=== PATIENT | female | born 1995 | race African-American/Black ===

== ENCOUNTER 2017-07-06 10:58 | Emergency (ER) | payer BC ==
[~2017-07-06] VITALS: Ht 152.4 cm; Wt 81.5 kg
[2017-07-06 10:59] VITALS: BP 153/68; PULSE 82; RESP 18; TEMP 98.5; O2SAT 96
[2017-07-06] MEDS ORDERED: SODIUM CHLOR 0.9% 1000 ML INJ 1,000 ML IV SCH (11:18)
[2017-07-06] MEDS ORDERED: LISI10TA3 PO (11:18)
[2017-07-06] MEDS ORDERED: HYDR200T3 PO (11:18)
--- NOTE | 2017-07-06 11:24 | PD ---
HPI Chief Complaint: Flank/Kidney Pain Time Seen by Provider: 11:06 Travel History International Travel<30 days: No Contact w/Intl Traveler<30days: No Traveled to known affect area: No History of Present Illness HPI The patient is a 22-year-old [place] female who presents emergency department for 3 to four-day history of nausea, vomiting, and diarrhea. The patient then developed lower abdominal pain that radiates to back this morning. She denies any dysuria, however, does note dark colored urine. Patient's last menstrual cycle was June 17, had a negative test at her physician's office yesterday. The patient denies any vaginal discharge or bleeding. 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 The patient does complain of elbow pain and knee pain, denies any diffuse myalgias. She denies any congestion, sore throat, cough, chest pain, or shortness of breath. Symptoms are moderate. There are no alleviating or exacerbating factors. She denies any sick contacts at home. She denies any recent international travel. [facility] Past Medical History Narrative Medical Lupus, lupus nephritis Medical other: Yes (lupus) ?: Not LMP: 06/17/17 Past Surgical History Narrative Surgical Kidney biopsy Other Surgery: Yes (kidney biopsies) Social History Alcohol Use: No Tobacco Use: No Substance Use: Yes (marijuana) Allergies-Medications (Allergen,Severity, Reaction): Coded Allergies: Penicillins (Verified Allergy, Severe, hives, 07/06/17) Reported Meds & Prescriptions Reported Meds & Active Scripts Active Reported Lisinopril 10 Mg Tab 10 Mg PO DAILY Hydroxychloroquine (Hydroxychloroquine Sulfate) 200 Mg Tab 200 Mg PO BID Takw with food Review of Systems Except as stated in HPI: all other systems reviewed are Neg General / Constitutional: No: Fever, Chills HENT: No: Sore Throat, Congestion Cardiovascular: No: Chest Pain or Discomfort Respiratory: No: Cough, Shortness of Breath Gastrointestinal: Positive: Nausea, Vomiting, Diarrhea, Abdominal Pain Genitourinary: Positive: Other (dark-colored urine), No: Dysuria, Discharge, Vaginal Bleeding Musculoskeletal: Positive: Arthralgias, No: Myalgias Physical Exam Narrative GENERAL: Awake, alert, very pleasant 22-year-old female who appears her stated age and is in no acute respiratory distress. SKIN: Focused skin assessment warm/dry. HEAD: Atraumatic. Normocephalic. EYES: Pupils equal and round. No scleral icterus. No injection or drainage. ENT: No nasal bleeding or discharge. Mucous membranes pink and moist. NECK: Trachea midline. No JVD. CARDIOVASCULAR: Regular rate and rhythm. No murmur appreciated. RESPIRATORY: No accessory muscle use. Clear to auscultation. Breath sounds equal bilaterally. GASTROINTESTINAL: Abdomen soft, mild suprapubic tenderness. Back: No CVA tenderness. MUSCULOSKELETAL: No obvious deformities. No clubbing. No cyanosis. No edema. No obvious erythema or edema of the knees or elbows. NEUROLOGICAL: Awake and alert. No obvious cranial nerve deficits. Motor grossly within normal limits. Normal speech. Nonfocal. PSYCHIATRIC: Appropriate mood and affect; insight and judgment normal. Data Data Last Documented VS Vital Signs Date Time Temp Pulse Resp B/P (MAP) Pulse Ox O2 Delivery O2 Flow Rate FiO2 07/06/17 11:32 100 Room Air 07/06/17 10:59 98.5 82 18 Orders Orders Complete Blood Count With Diff (07/06/17 11:18) Comprehensive Metabolic Panel (07/06/17 11:18) Lipase (07/06/17 11:18) Urinalysis - C+S If Indicated (07/06/17 11:18) Iv Access Insert/Monitor (07/06/17 11:18) Ecg Monitoring (07/06/17 11:18) Oximetry (07/06/17 11:18) Morphine Inj (Morphine Inj) (07/06/17 11:30) Ondansetron Inj (Zofran Inj) (07/06/17 11:30) Sodium Chlor 0.9% 1000 Ml Inj (Ns 1000 M (07/06/17 11:18) Sodium Chloride 0.9% Flush (Ns Flush) (07/06/17 11:30) Famotidine Inj (Pepcid Inj) (07/06/17 11:30) Ed Urine Pregnancytest Poc (07/06/17 11:18) Influenzae A/B Antigen (07/06/17 11:25) Urine Culture (07/06/17 11:27) Sulfamet-Trimeth Ds 800-160 Mg (Bactrim (07/06/17 12:15) Labs Laboratory Tests Test 07/06/17 11:27 White Blood Count 7.7 TH/MM3 Red Blood Count 4.78 MIL/MM3 Hemoglobin 11.5 GM/DL Hematocrit 35.3 % Mean Corpuscular Volume 73.9 FL Mean Corpuscular Hemoglobin 24.0 PG Mean Corpuscular Hemoglobin Concent 32.5 % Red Cell Distribution Width 15.0 % Platelet Count 291 TH/MM3 Mean Platelet Volume 9.0 FL Neutrophils (%) (Auto) 47.2 % Lymphocytes (%) (Auto) 36.2 % Monocytes (%) (Auto) 12.3 % Eosinophils (%) (Auto) 3.7 % Basophils (%) (Auto) 0.6 % Neutrophils # (Auto) 3.6 TH/MM3 Lymphocytes # (Auto) 2.8 TH/MM3 Monocytes # (Auto) 0.9 TH/MM3 Eosinophils # (Auto) 0.3 TH/MM3 Basophils # (Auto) 0.0 TH/MM3 CBC Comment DIFF FINAL Differential Comment Urine Color YELLOW Urine Turbidity HAZY Urine pH 7.5 Urine Specific [place] 1.014 Urine Protein TRACE mg/dL Urine Glucose (UA) NEG mg/dL Urine Ketones NEG mg/dL Urine Occult Blood NEG Urine Nitrite NEG Urine Bilirubin NEG Urine Urobilinogen LESS THAN 2.0 MG/DL Urine Leukocyte Esterase LARGE Urine RBC 2 /hpf Urine WBC 27 /hpf Urine Squamous Epithelial Cells 4 /hpf Urine Bacteria MOD /hpf Microscopic Urinalysis Comment CULTURE INDICATED Blood Urea Nitrogen 13 MG/DL Creatinine 0.75 MG/DL Random Glucose 82 MG/DL Total Protein 6.5 GM/DL Albumin 3.3 GM/DL Calcium Level 8.0 MG/DL Alkaline Phosphatase 36 U/L Aspartate Amino Transf (AST/SGOT) 19 U/L Alanine Aminotransferase (ALT/SGPT) 13 U/L Total Bilirubin 0.5 MG/DL Sodium Level 139 MEQ/L Potassium Level 4.0 MEQ/L Chloride Level 110 MEQ/L Carbon Dioxide Level 23.1 MEQ/L Anion Gap 6 MEQ/L Estimat Glomerular Filtration Rate 119 ML/MIN Lipase 80 U/L MDM Medical Decision Making Medical Screen Exam Complete: Yes Emergency Medical Condition: Yes Medical Record Reviewed: Yes Interpretation(s) Laboratory Tests Test 07/06/17 11:27 White Blood Count 7.7 TH/MM3 Red Blood Count 4.78 MIL/MM3 Hemoglobin 11.5 GM/DL Hematocrit 35.3 % Mean Corpuscular Volume 73.9 FL Mean Corpuscular Hemoglobin 24.0 PG Mean Corpuscular Hemoglobin Concent 32.5 % Red Cell Distribution Width 15.0 % Platelet Count 291 TH/MM3 Mean Platelet Volume 9.0 FL Neutrophils (%) (Auto) 47.2 % Lymphocytes (%) (Auto) 36.2 % Monocytes (%) (Auto) 12.3 % Eosinophils (%) (Auto) 3.7 % Basophils (%) (Auto) 0.6 % Neutrophils # (Auto) 3.6 TH/MM3 Lymphocytes # (Auto) 2.8 TH/MM3 Monocytes # (Auto) 0.9 TH/MM3 Eosinophils # (Auto) 0.3 TH/MM3 Basophils # (Auto) 0.0 TH/MM3 CBC Comment DIFF FINAL Differential Comment Urine Color YELLOW Urine Turbidity HAZY Urine pH 7.5 Urine Specific [place] 1.014 Urine Protein TRACE mg/dL Urine Glucose (UA) NEG mg/dL Urine Ketones NEG mg/dL Urine Occult Blood NEG Urine Nitrite NEG Urine Bilirubin NEG Urine Urobilinogen LESS THAN 2.0 MG/DL Urine Leukocyte Esterase LARGE Urine RBC 2 /hpf Urine WBC 27 /hpf Urine Squamous Epithelial Cells 4 /hpf Urine Bacteria MOD /hpf Microscopic Urinalysis Comment CULTURE INDICATED Blood Urea Nitrogen 13 MG/DL Creatinine 0.75 MG/DL Random Glucose 82 MG/DL Total Protein 6.5 GM/DL Albumin 3.3 GM/DL Calcium Level 8.0 MG/DL Alkaline Phosphatase 36 U/L Aspartate Amino Transf (AST/SGOT) 19 U/L Alanine Aminotransferase (ALT/SGPT) 13 U/L Total Bilirubin 0.5 MG/DL Sodium Level 139 MEQ/L Potassium Level 4.0 MEQ/L Chloride Level 110 MEQ/L Carbon Dioxide Level 23.1 MEQ/L Anion Gap 6 MEQ/L Estimat Glomerular Filtration Rate 119 ML/MIN Lipase 80 U/L Differential Diagnosis Differential diagnosis includes gastroenteritis, enteritis, colitis, pyelonephritis, UTI, lupus flare, nephritis, , PID, cervicitis. Narrative Course IV was established, labs are drawn and sent, and the patient was placed on cardiac telemetry monitoring and continuous pulse oximetry monitoring. The patient was administered Zofran, morphine, Pepcid, and IV fluids. Bedside UA test was obtained, negative. UA was sent to lab. White count is normal. BUN/creatinine are normal. LFTs and lipase are normal. UA reveals 27 the ABCs, leukocyte esterase, trace protein. Patient was administered Bactrim for possible UTI/pyelonephritis. The patient was reevaluated at 12:15 PM. Symptoms have improved. Patient states that Zofran ODT made her sick in the past, therefore, I will prescribe Phenergan for the nausea/vomiting and Bactrim for the pyelonephritis. Diagnosis Primary Impression: Gastroenteritis Additional Impression: Pyelonephritis Patient Instructions: General Instructions Additional Instructions: Please provide the patient a copy of her labs at discharge. Medications as directed. Follow-up with her primary physician. Clear liquid diet and advance as tolerated. Return if symptoms worsen or progress. Med/Other Pt SpecificInfo: Prescription(s) given Scripts Promethazine (Phenergan) 25 Mg Tablet 25 MG PO Q6H Y for NAUSEA OR VOMITING, #10 TAB 0 Refills Prov: Jose Abarca MD 07/06/17 Sulfamethoxazole-Trimethoprim (Bactrim DS) 800-160 Mg Tab 1 TAB PO BID for Infection, #14 TAB 0 Refills Prov: Jose Abarca MD 07/06/17 Disposition: DISCHARGE HOME Condition: Stable Jose Abarca MD Jul 06, 2017 11:24
[2017-07-06] MEDS ORDERED: ONDANSETRON HCL 4 MG/2 ML VIAL IVP ONE (11:30)
[2017-07-06] MEDS ORDERED: SODIUM CHLORIDE 0.9% FLUSH 10 ML FLUSH IV FLUSH PRN (11:30)
[2017-07-06] MEDS ORDERED: MORPHINE SULFATE 4 MG/ML INJ IV PUSH ONE (11:30)
[2017-07-06] MEDS ORDERED: FAMOTIDINE 20 MG/2 ML VIAL IV PUSH ONE (11:30)
[2017-07-06 11:32] VITALS: O2SAT 100
[2017-07-06 11:45] LABS: AUTOMATED NEUTROPHIL # 3.6 TH/MM3 (1.8-7.7); BASOPHIL % 0.6 % (0.0-2.0); EOSINOPHIL # 0.3 TH/MM3 (0-0.4); EOSINOPHIL % 3.7 % (0.0-4.0); HEMATOCRIT 35.3 % (35.0-46.0); HEMOGLOBIN 11.5 GM/DL (11.6-15.3); LYMPH % 36.2 % (9.0-44.0); LYMPHOCYTE # 2.8 TH/MM3 (1.0-4.8); MEAN CELL VOLUME 73.9 FL (80.0-100.0); MEAN CORPUSCULAR HGB CONC 32.5 % (32.0-36.0); MONO % 12.3 % (0.0-8.0); MONOCYTE # 0.9 TH/MM3 (0-0.9); NEUT % 47.2 % (16.0-70.0); PLATELET COUNT 291 TH/MM3 (150-450); RED BLOOD COUNT 4.78 MIL/MM3 (4.00-5.30); WHITE BLOOD COUNT 7.7 TH/MM3 (4.0-11.0)
[2017-07-06 11:57] LABS: BACTERIA, URINE MOD /hpf; BILIRUBIN, URINE NEG (NEG); BLOOD, URINE NEG (NEG); GLUCOSE,URINE NEG (NEG); KETONE, URINE NEG (NEG); NITRITE,URINE NEG (NEG); PH, URINE 7.5 (5.0-8.5); SQUAMOUS EPITHELIAL CELL URINE 4 /hpf (0-5); URINE COLOR YELLOW (YELLW/STRAW); URINE LEUKOCYTE ESTERASE LARGE (NEG)
[2017-07-06 12:02] LABS: ALBUMIN 3.3 GM/DL (3.4-5.0); AST (GOT) 19 U/L (16-38); BICARBONATE 23.1 MEQ/L (21.0-32.0); BLOOD UREA NITROGEN 13 MG/DL (7-18); CHLORIDE 110 MEQ/L (98-107); CREATININE 0.75 MG/DL (0.50-1.00); GLOMERULAR FILTRATION RATE 119 ML/MIN (>89); GLUCOSE,RANDOM 82 MG/DL (74-106); SODIUM (NA) 139 MEQ/L (136-145)
[2017-07-06 12:04] LABS: ALKALINE PHOSPHATASE 36 U/L (45-117); ALT (GPT) 13 U/L (9-42); TOTAL BILIRUBIN ADULT 0.5 MG/DL (0.2-1.0); TOTAL PROTEIN 6.5 GM/DL (6.4-8.2)
[2017-07-06] MEDS ORDERED: SULFAMETHOXAZOLE-TRIMETHOPRIM DS 800-160 MG TAB PO ONE (12:15)
[2017-07-06] MEDS ORDERED: PROM25TA10 PO (12:18)
[2017-07-06] MEDS ORDERED: BACT800T5 PO (12:18)
== END 2017-07-06 12:40 | disposition home or self-care (01) ==
LOC: NEPD 10:58
DX: K52.9 Noninfective gastroenteritis and colitis, unspecified (principal); N12 Tubulo-interstitial nephritis, not specified as acute or chronic; B95.7 Other staphylococcus as the cause of diseases classified elsewhere; M32.14 Glomerular disease in systemic lupus erythematosus
CPT/HCPCS: 80053; 81001; 83690; 84703; 85025; 86403; 87077; 87086; 87186; 87804; 96361; 96374; 96375; 99284; J2270; J2405; J7030